=== PATIENT | male | born 1975 | race Caucasian/White ===

== ENCOUNTER 2020-09-11 09:08 | Inpatient (IN) | payer BC, SELFPAY ==
[2020-09-11] VITALS (13 sets, daily range): BP systolic 139–227; BP diastolic 68–114; PULSE 67–104; RESP 16–20; TEMP 36.1–36.9; O2SAT 96–100; BMI 31.1
--- NOTE | ~2020-09-11 | CT_ITS ---
EXAMINATION: CTA brain carotid DATE: 09/11/2020 10:40 INDICATION: Slurred speech. Transient ischemic attack. Weakness. TECHNIQUE: Computed tomographic angiography (CTA) of the head was performed without and with 100 mL O mnipaque-350 intravenous contrast. CTA of the neck was performed with intravenous contrast. Automated exposure control and iterative reconstruction technique were employed. The dose-length product was 1 726.84 mGy-cm. Maximum intensity projection and volume rendered 3D-reconstructions were created by mayra kwong technologist on a separate workstation. COMPARISON: None. FINDINGS: HEAD CTA: There is no intracranial hemorrhage, acute infarction, or abnormal intracranial mass lesion . The ventricles are normal in size. The orbits are normal. There is mucosal thickening in the parana yohan sinuses. The mastoid air cells are normal. Left vertebral artery is dominant. There is no signifi cant stenosis of basilar artery or the posterior cerebral arteries. There is no significant stenosis of the intracranial internal carotid arteries or anterior or middle cerebral arteries. There is a 2 m m saccular aneurysm of right supraclinoid internal carotid artery directed laterally. Anterior commun icating artery is normal. The posterior communicating arteries are normal. NECK CTA: There is no significant stenosis of the vertebral arteries. There is mild plaque in the pro ximal internal carotid arteries. There is 0% stenosis of the proximal right internal carotid artery r elative to normal distal artery lumen diameter (NASCET criteria). There is 0% stenosis of the proxima l left internal carotid artery relative to normal distal artery lumen diameter. There are no patholog ically enlarged lymph nodes. There is mild cervical spondylosis. IMPRESSION: 1. Normal brain parenchyma. 2. 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 3. 0% stenosis of the proximal internal carotid arteries relative to normal distal artery lumen diame ters (NASCET criteria). 4. I discussed this result with Edward Echevarria. Reviewed, dictated and finalized at location A. IMPRESSION: 1. Normal brain parenchyma. 2. 2 mm saccular aneurysm of right supraclinoid internal carotid artery directe d laterally. 3. 0% stenosis of the proximal internal carotid arteries relative to normal dis david artery lumen diameters (NASCET criteria). 4. I discussed this result with Edward Echevarria.
--- NOTE | ~2020-09-11 | MR_ITS ---
EXAMINATION: MR brain/brain stem wo/w con EXAM DATE: 09/11/2020 16:58 INDICATION: Stroke. Left hemiparesis. Slurred speech. TECHNIQUE: Magnetic resonance imaging (MRI) of the brain/brain stem obtained without contrast. Sagit david T1, axial diffusion, gradient echo (T2*), T1, T2, FLAIR sequences obtained. Patient was then inj ected with 18 cc intravenous Multihance contrast. Axial and coronal postcontrast T1 weighted sequence s obtained. Correlation is made to CTA brain from earlier same day. FINDINGS: There are 2 punctate acute infarctions on the right, one in the basal ganglia and the other right periventricular white matter. There is no acute hemorrhage seen on the T2*, a hemosiderin sen sitive sequence. No intraparenchymal brain mass. The ventricles are normal in size. There are no ex tra-axial collections. Flow voids are seen in the cerebral arteries on the T2-weighted sequences con sistent with their expected patency. The orbits are unremarkable. Soft tissue is unremarkable. Th ere is moderate ethmoid and mild to moderate bilateral maxillary sinus mucoperiosteal thickening. The re are no areas of abnormal enhancement on the post contrast images. IMPRESSION: 1. Two punctate acute right-sided lacunar infarctions. 2. Moderate ethmoid mucoperiosteal disease. Reviewed, dictated and finalized at location A.
--- NOTE | ~2020-09-11 | XR_ITS ---
EXAMINATION: XR chest 1V portable DATE: 09/11/2020 11:03 INDICATION: Slurred speech. Weakness. TECHNIQUE: A single frontal view of the chest was obtained. COMPARISON: None. FINDINGS: The chest demonstrates clear lungs without pneumonia, pleural effusion, or pneumothorax. Th e heart size is normal. IMPRESSION: 1. No acute cardiopulmonary disease. Reviewed, dictated and finalized at location A.
[2020-09-11 09:15] LABS: Glucose Point of Care 152 (65-105)
--- NOTE | 2020-09-11 10:07 | ECG_ITS ---
Measurements Intervals [place] Rate: 91 P: 25 ME: 144 QRS: -29 QRSD: 86 T: 48 QT: 344 QTc: 423 Interpretive Statements SINUS RHYTHM DELAYED PRECORDIAL R/S TRANSITION ST ELEVATION IN ANTEROLATERAL LEADS- PROBABLY EARLY REPOLARIZATION BORDERLINE ECG Electronically Signed On 09-11-2020 11:46:53 CDT by Dre Arroyo D.O.
[2020-09-11 10:40] LABS: Anion Gap 8 mmol/L (8-16); Blood Urea Nitrogen 12 mg/dL (9-20); Calcium 9.7 mg/dL (8.4-10.2); Carbon Dioxide 26 mmol/L (22-30); Chloride 105 mmol/L (98-107); Estimated CRCL calculation 103 ml/min; Estimated Glomerular Filt Rate > 60; Glucose 142 mg/dL (75-110); Potassium 3.8 mmol/L (3.4-5.0); Sodium 139 mmol/L (137-145)
[2020-09-11 10:45] LABS: Partial Thromboplastin Time 31.4 SECONDS (22.3-36.8); Prothrombin Time 12.4 Seconds (11.1-14.7)
[2020-09-11 10:51] LABS: Troponin I < 0.012 ng/mL (0.000-0.034)
--- NOTE | 2020-09-11 10:54 | ED.GENADULT ---
HPI - General Adult General Chief complaint: Neuro Symptoms/Deficit Stated complaint: ?STROKE LIKE SYMPTOMS Source: patient Mode of arrival: ambulatory Limitations: no limitations History of Present Illness HPI narrative: Patient is a 45-year-old male who presents to emergency department for evaluation of 6 episodes of feeling as though he has weakness in the upper extremities and felt off balance symptoms began roughly around 5:36 AM this morning and have been intermittent since onset patient on arrival to emergency department is symptom-free denies history of similar occurrences. Patient has not taken anything for his symptoms. Patient on arrival has no complaints. Patient notes he had felt fine in the preceding days. Review of Systems Review of Systems: All systems reviewed & are unremarkable except as noted in HPI and below PMFSH Past Medical History Medical History ADHD OCD (obsessive compulsive disorder) Social History Social History Gender identity (if verbalized by the patient): Male Exam Narrative: Exam Narrative: GENERAL: Well-appearing, well-nourished, and in no acute distress. HEAD: Normocephalic, atraumatic. EYES: PERRLA and EOMI. ENT: Nares clear, no rhinorrhea or epistaxis. Mucous membranes moist. Oropharynx without tonsillar hypertrophy exudate or other lesions. NECK: Supple. No adenopathy or masses. No carotid bruits or JVD CHEST: Clear to auscultation. No respiratory distress. No wheezes rales or rhonchi HEART: Regular rate and rhythm. No murmur heard. Normal peripheral pulses. ABDOMEN: Soft, nontender, nondistended EXTREMITIES: Normal range of motion. No edema. SKIN: Warm, dry, no rash. NEURO: No focal deficits. Alert and oriented x3. Cranial nerves II through XII grossly intact. Normal speech. Cerebellar intact. No pronator drift. Normal [id number] and [id number]-yy-[id number]. PSYCH: Normal mood and affect. Course Course Emergency Course: Patient in the room at this time resting comfortably no distress will be admitted for stroke work-up and further evaluation by neurology and hospitalist service Consultations Consultation #1: Patient case discussed with neurology and hospitalist have agreed to accept the patient Date: 09/11/20 Time: 11:27 Vital Signs Vital signs: Vital Signs Temperature 98.4 F 09/11/20 09:07 Pulse Rate 104 H 09/11/20 09:07 Respiratory Rate 20 09/11/20 09:07 Blood Pressure 227/114 H 09/11/20 09:07 Pulse Oximetry 96 09/11/20 09:07 Temperature 98.4 F 09/11/20 09:07 Pulse Rate 104 H 09/11/20 09:07 Respiratory Rate 20 09/11/20 09:07 Blood Pressure 227/114 H 09/11/20 09:07 Pulse Oximetry 96 09/11/20 09:07 Medical Decision Making MDM Narrative Medical decision making narrative: Patient in the room with atypical neurologic paresthesias and weakness that have come and gone since 530 this morning patient will be brought into the hospital for further evaluation by neurology and the hospitalist service. Patient is asymptomatic at this time. Patient with systolic blood pressures of 150 in the emergency department. Patient otherwise in no pain with no complaints and resting comfortably and agreeing to stay in hospital. No focal neurologic deficits on exam Vital Signs Vital Signs: Vital Signs Temperature 98.4 F 09/11/20 09:07 Pulse Rate 104 H 09/11/20 09:07 Respiratory Rate 20 09/11/20 09:07 Blood Pressure 227/114 H 09/11/20 09:07 Pulse Oximetry 96 09/11/20 09:07 Temperature 98.4 F 09/11/20 09:07 Pulse Rate 104 H 09/11/20 09:07 Respiratory Rate 20 09/11/20 09:07 Blood Pressure 227/114 H 09/11/20 09:07 Pulse Oximetry 96 09/11/20 09:07 Lab Data Result diagrams: 09/11/20 09:24 09/11/20 09:24 Labs: Lab Results 09/11/20 09/11/20 09/11/20 Range/Units 09:12 09:24 10:07
[2020-09-11] MEDS: ASPIRIN 325 MG TABLET PO (11:39)
[2020-09-11 11:42] LABS: Basophils Absolute Auto 0.1 K/mm3 (0.0-0.1); Basophils Percent Auto 0.7 % (0.2-1.2); Eosinophils Absolute Auto 0.4 K/mm3 (0-0.3); Eosinophils Percent Auto 3.7 % (0-4.4); Hematocrit 47.4 % (42.0-52.0); Immature Granulocyte Absolute 0.14 K/mm3 (0.00-0.031); Immature Granulocyte Percent A 1.4 % (0-0.5); Lymphocytes Absolute Auto 2.02 K/mm3 (0.9-3.2); Lymphocytes Percent Auto 20.9 % (18.3-44.2); Mean Corpuscular HGB Conc 33.8 g/dl (32-36); Mean Corpuscular Volume 85.9 fl (80-100); Mean Platelet Volume 10.7 fl (7.4-10.4); Monocytes Absolute Auto 0.5 K/mm3 (0.1-0.6); Monocytes Percent Auto 5.4 % (2.6-8.5); Neutrophils Absolute Auto 6.6 K/mm3 (1.3-6.7); Neutrophils Percent Auto 67.9 % (45.5-73.1); Platelet Count Result 303 k/mm3 (150-375); Red Blood Count 5.52 M/mm3 (4.6-6.20); Red Cell Distribution Width 13.7 % (11.5-14.5); White Blood Count 9.7 K/mm3 (4.5-10.0)
[2020-09-11 12:11] LABS: Amphetamine Screen Urine Negative (Negative); Barbiturate Screen Urine Negative (Negative); Benzodiazepines Screen Urine Negative (Negative); Cannabinoid Screen Urine Negative (Negative); Cocaine Screen Urine Negative (Negative); Methadone Screen Urine Negative (Negative); Opiate Screen Urine Negative (Negative); Phencyclidine Screen Urine Negative (Negative)
--- NOTE | 2020-09-11 13:57 | ADMGEN ---
This patient, Patric Villeda, was admitted to 3 [facility] Surg Room 301-01. Patient/family oriented to hospital policies and general routines including ID bracelet, bed and alarms, visiting hours, pain management, procedures, bathroom and other care routines, personal items, smoking policy, room service/diet, and visiting hours. Valuables list has been completed. Information on how to activate the Rapid Response Team has been discussed. Patient/Family are encouraged to report perceived risks to care and to ask questions if they do not understand what they are told or what they should do.
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
[2020-09-11 15:44] LABS: Cholesterol 283 mg/dL (0-200); HDL Direct 36 mg/dL; Triglycerides 163 mg/dL (<150)
[2020-09-11 15:54] LABS: LDL Cholesterol Direct 206 mg/dL
[2020-09-11 17:56] LABS: Hemoglobin A1C 5.4 % (<5.7)
[2020-09-11] MEDS: FAMOTIDINE 20 MG/2 ML VIAL IV PUSH (20:36)
[2020-09-12] VITALS (10 sets, daily range): BP systolic 148–156; BP diastolic 87–93; PULSE 61–80; RESP 16–20; TEMP 36.2–36.6; O2SAT 96–100
--- NOTE | 2020-09-12 06:00 | ECHO_ITS ---
Patient Info Name: Patric Villeda Age: 45 years : 1975 Gender: Male Ht: 68 in Wt: 204 lbs BSA: 2.13 m2 HR: 68 bpm BP: 148 / 68 mmHg Technical Quality: Good Exam Date: 09/12/2020 12:05 PM Exam Location: [facility] Pulmonary Patient Status: Inpatient Admit Date: 09/12/2020 Staff Ordering Physician: Edward Echevarria PA-C Electrician Third: Talon Jacob RDCS, RT Attending Provider: Ambreen Loera PA-C Referring Physician: Wale TENORIO; Exam Type: CA echo doppler color flow Study Info Indications G45.8 - Other transient cerebral ischemic attacks and related syndromes Complete two-dimensional, color flow and Doppler transthoracic echocardiogram is performed. Summary 1. Complete two-dimensional, color flow and Doppler transthoracic echocardiogram is performed. 2. Left ventricular chamber dimension is normal. 3. Left ventricular systolic function is normal, estimated at 60-65%. 4. There is mildly increased left ventricular wall thickness. 5. The left ventricular diastolic function is normal. 6. E/e' 7 is not elevated. 7. Global longitudinal strain is abnormal at -13.4%. Left Ventricle E/e' 7 is not elevated. Global longitudinal strain is abnormal at -13.4%. Left ventricular chamber dimension is normal. Left ventricular systolic function is normal, estimated at 60-65%. There is mildly increased left ventricular wall thickness. The left ventricular diastolic function is normal. Right Ventricle Right ventricular chamber dimension is normal. Right ventricular systolic function is normal. Left Atria Left atrial chamber dimension is normal. Right Atria Right atrial chamber dimension is normal. Aortic Valve The aortic valve is trileaflet. There is no aortic valve stenosis. There is no aortic valve regurgitation. Pulmonic Valve There is no pulmonic regurgitation. Mitral Valve There is no mitral valve stenosis. There is no mitral valve regurgitation. Tricuspid Valve There is no tricuspid valve regurgitation. Pericardium/Pleural There is no pericardial effusion. Inferior Vena Cava Normal inferior vena cava with >50% collapse upon inspiration consistent with normal right atrial pressure, 5 mmHg. Aorta The aortic root size at the sinus of Valsalva is normal. Left Ventricular Outflow Tract Name Value Normal LVOT 2D LVOT Diameter 2.0 cm LVOT Doppler LVOT Peak Gradient 7 mmHg LVOT Mean Gradient 4 mmHg LVOT VTI 24 cm LVOT VTI/AV VTI Ratio 0.7 LVOT Stroke Volume 76 ml LVOT CO 5.4 l/min LVOT CI 2.5 l/min/m2 Mitral Valve Name Value Normal MV Doppler MV Decel [place] 493 cm/s2 MV P
[2020-09-12 06:06] LABS: Basophils Absolute Auto 0.1 K/mm3 (0.0-0.1); Basophils Percent Auto 1.1 % (0.2-1.2); Eosinophils Absolute Auto 0.6 K/mm3 (0-0.3); Hematocrit 47.6 % (42.0-52.0); Hemoglobin 15.7 g/dL (14.0-18.0); Immature Granulocyte Absolute 0.12 K/mm3 (0.00-0.031); Immature Granulocyte Percent A 1.1 % (0-0.5); Lymphocytes Absolute Auto 2.92 K/mm3 (0.9-3.2); Lymphocytes Percent Auto 26.5 % (18.3-44.2); Mean Corpuscular Hemoglobin 28.8 pg (26-34); Mean Corpuscular Volume 87.3 fl (80-100); Mean Platelet Volume 10.5 fl (7.4-10.4); Monocytes Absolute Auto 0.6 K/mm3 (0.1-0.6); Monocytes Percent Auto 5.6 % (2.6-8.5); Neutrophils Absolute Auto 6.7 K/mm3 (1.3-6.7); Neutrophils Percent Auto 60.7 % (45.5-73.1); Platelet Count Result 293 k/mm3 (150-375); Red Blood Count 5.45 M/mm3 (4.6-6.20); Red Cell Distribution Width 14.2 % (11.5-14.5)
[2020-09-12 06:23] LABS: Anion Gap 6 mmol/L (8-16); Blood Urea Nitrogen 15 mg/dL (9-20); Calcium 9.4 mg/dL (8.4-10.2); Carbon Dioxide 26 mmol/L (22-30); Chloride 107 mmol/L (98-107); Estimated CRCL calculation 93 ml/min; Estimated Glomerular Filt Rate > 60; Glucose 103 mg/dL (75-110); Potassium 4.3 mmol/L (3.4-5.0); Sodium 139 mmol/L (137-145)
[2020-09-12] MEDS: ASPIRIN 81 MG CHEWABLE TABLET PO (07:59)
[2020-09-12] MEDS: FAMOTIDINE 20 MG/2 ML VIAL IV PUSH ×2 (07:59→20:19)
--- NOTE | 2020-09-12 11:24 | PM.IMPN ---
Progress Note: A&P Assessment and Plan (1) Acute CVA (cerebrovascular accident): Code(s): I63.9 - Cerebral infarction, unspecified Status: Acute Assessment and Plan: Intermittent symptoms since 05:30 prior to arrival. No history of seizures, TIA or strokes in the past. He was given a full-dose aspirin arrival to the ER. CTA Head/Neck showed Normal brain parenchyma. 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 0% stenosis of the proximal internal carotid arteries relative to normal distal artery lumen diameters (NASCET criteria). MRI showed Two punctate acute right-sided lacunar infarctions. Tele showed NSR rate 69 with no alarms for abnormal rhythms. Neurology consulted for further evaluation and treatment Echocardiogram ordered, Continue monitoring Tele, EEG ordered to rule out seizure activity. PT and OT ordered Continue ASA 81 mg daily and switched cholesterol medication to Atorvastatin 80 mg daily. Continue monitoring. (2) Slurred speech: Code(s): R47.81 - Slurred speech Status: Acute Assessment and Plan: See above (3) Dyslipidemia: Code(s): E78.5 - Hyperlipidemia, unspecified Status: Acute Assessment and Plan: He takes Zetia for high cholesterol, which he recented started. He switched from a Statin medication but it was not due to any side effects. Fasting lipid panel showed elevated total cholesterol at 283 and LDL 206 which is not well controlled. Added Atorvastatin high dose 80 mg daily and will need repeat labs in 3 months with PCP. Seems like he has a family history of HLD and may need further genetic testing or may need to consider Injectable medications like Repatha or Praluent. (4) ADHD: Code(s): F90.9 - Attention-deficit hyperactivity disorder, unspecified type Status: Inactive Assessment and Plan: Continue his home Adderall. (5) Elevated blood pressure reading: Code(s): R03.0 - Elevated blood-pressure reading, without diagnosis of hypertension Status: Acute Assessment and Plan: BP was significantly elevated on arrival 220/110. He has has intermittent elevation to his BP. We will add IV Hydralazine if BP systolic > 190 and Diastolic >105, otherwise we will allow permissive hypertension in the setting of acute CVA Continue monitoring. (6) Elevated glucose level: Code(s): R73.09 - Other abnormal glucose Status: Acute Assessment and Plan: Glucose was elevated on arrival which could be from his breakfast HgbA1c was normal at 5.4%. Time Spent With Patient Time with patient: 25 - 35 minutes Subjective Date/time seen: 09/12/20 11:24 Interval history: Date of service 09/12/2020: the patient reports feeling well today he has not had any more episodes of slurred speech, numbness, tingling, or other stroke-like symptoms since around 1:00 p.m. yesterday when he was admitted to the floor. He states he is feeling well today and back to his baseline without any concerns. He denies any left-sided weakness, numbness, tingling. He denies any chest pain, shortness of breath, cough, fever, chills, nausea, vomiting, abdominal pain, leg swelling, calf pain or any other symptoms at this time. Review of Systems Review of Systems: All systems reviewed & are unremarkable except as noted in HPI and below Exam Narrative: Exam Narrative: General: 45-year-old man sitting up in bed On who is followed, resting comfortabl. Appears comfortable. In no acute distress. HEENT: Normocephalic, atraumatic. Skin: No jaundice or cyanosis. Good skin turgor. Neck: Full range of motion. Supple
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
[2020-09-12] MEDS: ATORVASTATIN 40 MG TABLET 80 MG PO (16:40)
[2020-09-12 17:50] LABS: Rheumatoid Factor < 8.6 IU/ML (<12)
[2020-09-13] VITALS: BP 148/80; PULSE 77; PULSE 82; RESP 16; TEMP 36.5; O2SAT 99
[2020-09-13 04:00] VITALS: BP 142/77; PULSE 62; PULSE 72; RESP 16; TEMP 36.4; O2SAT 100
[2020-09-13] MEDS: FAMOTIDINE 20 MG/2 ML VIAL IV PUSH (07:36)
[2020-09-13] MEDS: ASPIRIN 81 MG CHEWABLE TABLET PO (07:36)
[2020-09-13] MEDS: ATORVASTATIN 40 MG TABLET 80 MG PO (07:36)
[2020-09-13 08:00] VITALS: PULSE 76
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
--- NOTE | 2020-09-13 11:26 | PM.DS ---
DS: Admitting Diagnosis Admitting Diagnosis Admitting Diagnosis: CVA DS: Discharge Diagnosis Discharge Diagnosis (1) Acute CVA (cerebrovascular accident): Code(s): I63.9 - Cerebral infarction, unspecified Status: Acute Assessment and Plan: Intermittent symptoms since 05:30 prior to arrival. No history of seizures, TIA or strokes in the past. He was given a full-dose aspirin arrival to the ER. CTA Head/Neck showed Normal brain parenchyma. 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 0% stenosis of the proximal internal carotid arteries relative to normal distal artery lumen diameters (NASCET criteria). MRI showed Two punctate acute right-sided lacunar infarctions. Tele showed NSR rate 69 with no alarms for abnormal rhythms. Echo showed Left ventricular chamber dimension is normal. Left ventricular systolic function is normal, estimated at 60-65%. There is mildly increased left ventricular wall thickness. The left ventricular diastolic function is normal. Neurology consulted and ordered further testing for other possible underlying conditions that could have caused him to have acute CVA at a young age. They also consulted Cardiology. Cardiology evaluated the patient and recommended outpatient JONY to rule out PFO. Cardiology recommended continuing on Aspirin 81 mg, adding Amlodipine 10 mg and Crestor 40 mg. He passed PT and OT without any issues. The patient understands and agrees with the plan for discharge at this time and need for follow up with Cardiology and Neurology as an outpatient. (2) Slurred speech: Code(s): R47.81 - Slurred speech Status: Acute Assessment and Plan: See above (3) Dyslipidemia: Code(s): E78.5 - Hyperlipidemia, unspecified Status: Acute Assessment and Plan: He takes Zetia for high cholesterol, which he recented started. He switched from a Statin medication but it was not due to any side effects. Fasting lipid panel showed elevated total cholesterol at 283 and LDL 206 which is not well controlled. Cardiology recommended Crestor 40 mg daily. Will need repeat labs in 3 months with PCP. Seems like he has a family history of HLD and may need further genetic testing or may need to consider Injectable medications like Repatha or Praluent. (4) ADHD: Code(s): F90.9 - Attention-deficit hyperactivity disorder, unspecified type Status: Inactive Assessment and Plan: Continue his home Adderall. (5) Elevated blood pressure reading: Code(s): R03.0 - Elevated blood-pressure reading, without diagnosis of hypertension Status: Acute Assessment and Plan: BP was significantly elevated on arrival 220/110. He has has intermittent elevation to his BP, 140-150s systolic. Cardiology recommended starting Amlodipine 10 mg daily which he can start tomorrow. (6) Elevated glucose level: Code(s): R73.09 - Other abnormal glucose Status: Acute Assessment and Plan: Glucose was elevated on arrival which could be from his breakfast HgbA1c was normal at 5.4%. DS: Summary Hospital Course Reason for hospitalization: Patric Villeda is a 45 year old male with a history of high cholesterol and ADHD, presented to the emergency department via EMS after having intermittent episodes of paresthesias, weakness, slurred speech since 05:30 this morning. Initial vitals showed temperature of 98.4?, blood pressure 227/114, tachycardic heart rate 104, respiratory rate 20, oxygen saturation 96% on room air. Normal CBC with differential, normal coag panel, normal BMP other than elevated glucose at 152. Negative
--- NOTE | 2020-09-15 11:16 | WPDNEUROLOGY ---
Neurology EEG Report General Information Date of Study: 09/12/20 TEST EEG DIAGNOSIS stroke CONDITION OF RECORDING awake drowsy and sleep EEG NUMBER [id number] CLINICAL HISTORY patient reported that she had 6 episodes yesterday of slurred speech and paralysis of the left side of the body. each time all symptomatology stopped and everything returned to normal EEG DESCRIPTION basic resting occipital frequency consist of large amount of low to medium voltage 9 to 11 hertz per second alpha admixed with low-voltage beta activity. During drowsiness low-voltage beta activity seen diffusely admixed with waxing and waning alpha rhythm. Bilateral symmetrical sleep activity is seen during sleep with intermittent regular EKG artifact. non paroxysmal .nonfocal nonlateralizing IMPRESSION normal record during wakefulness drowsiness and sleep
[2020-09-15 20:01] LABS: Anti-Thrombin III Antigen 104 % (80-120)
[2020-09-16 02:51] LABS: Anti Cardio Antibody IgM <12 MPL (<=12); Anti Cardiolipin Antibody IgA <11 APL (<=11); Anti Cardiolipin Antibody IgG <14 GPL (<=14)
[2020-09-16 09:09] LABS: Protein S Antigen, Total 144 % normal (70-140)
[2020-09-17 13:59] LABS: Protein C Antigen 112 % (70-140)
[2020-09-18 18:15] LABS: Factor VIII Activity 56 % normal (50-180)
[2020-10-30 10:46] LABS: Hexagonal Phase Confirm Negative
== END 2020-09-13 11:45 | disposition home or self-care (01) | DRG 66 ==
LOC: ANHED 11:31 → ANH3MEDSUR 12:38
PROVIDERS: Emergency Medicine Emergency Medical Services; Physician Assistant; Psychiatry & Neurology Neurology; Admitting Provider Internal Medicine; Emergency Provider Emergency Medicine; Visit Provider Internal Medicine
DX: I63.9 Cerebral infarction, unspecified (principal); E78.5 Hyperlipidemia, unspecified; F90.9 Attention-deficit hyperactivity disorder, unspecified type; R47.81 Slurred speech; R20.2 Paresthesia of skin; F17.201 Nicotine dependence, unspecified, in remission; I10 Essential (primary) hypertension
CPT/HCPCS: 36415; 70496; 70498; 70553; 71045; 80048; 80061; 80307; 81241; 82948; 83036; 84484; 85025; 85240; 85301; 85302; 85305; 85598; 85610; 85613; 85730; 86038; 86147; 86225; 86430; 93005; 93306; 95816; 96374; 96376; 97161; 97165; 99285; A9270; A9577; G0378; Q9967